=== PATIENT | male | born 1955 | race Caucasian/White ===

== ENCOUNTER 2018-06-01 10:48 | Observation (INO) ==
[2018-06-01 11:28] LABS: Basophils % 0.5 %; Eosinophils # 0.1 K/mcL (0.0-0.6); Eosinophils % 0.8 %; Hematocrit 49.5 % (37.5-50.1); Hemoglobin 17.4 g/dL (12.9-16.9); Immature Granulocytes % 0.3 % (0-4); Mean Corpuscular HGB Conc 35.2 g/dL (31.6-35.5); Mean Corpuscular Hemoglobin 31.4 pg (28.0-33.3); Mean Corpuscular Volume 89.2 fL (83.0-100.0); Mean Platelet Volume 8.7 fL (9.4-12.4); Monocytes # 0.5 K/mcL (0.0-1.3); Monocytes % 6.5 %; Neutrophils # 6.2 K/mcL (1.6-8.9); Platelet Count 246 K/mcL (140-400); Red Blood Count 5.55 M/mcL (4.19-5.50); Red Cell Distribution Width 12.7 % (11.5-14.5); Segmented Neutrophils % 78.9 %
[2018-06-01 11:47] LABS: Prothrombin Time 11.7 Seconds (9.4-12.1)
[2018-06-01 11:50] LABS: Activated Partial Thrombo Time 30.4 Seconds (26.0-36.0)
[2018-06-01 11:53] LABS: BUN/Creatinine Ratio 13 (6-26); Blood Urea Nitrogen 14 mg/dL (8-23); Calcium 9.4 mg/dL (8.6-10.3); Carbon Dioxide 29 mEq/L (23-29); Chloride 107 mEq/L (98-107); Glucose 103 mg/dL (70-105); Osmolality,Calculated 293 (280-300); Potassium 4.2 mEq/L (3.5-5.1); Sodium 141 mEq/L (136-145); eGFR For Non-African Americans > 60 (> 60)
[2018-06-01 11:54] LABS: Troponin I < 0.03 ng/mL (< 0.04)
--- NOTE | 2018-06-01 15:24 | Emergency Department Note ---
Disposition Clinical Impression: Intermittent palpitations Disposition: Admitted As Inpatient Condition: Good Referrals: Rosmery Chapin CNP [Primary Care Provider] - Forms: ED Satisfaction Letter General Adult HPI - General Chief complaint: ED Arrhythmia/Palpitations Stated complaint: Abnormal EKG Time Seen by Provider: 06/01/18 11:14 Source: family Limitations: no limitations - History of Present Illness HPI Narrative: Azael is a 62 YO M without significant PMH who presents to the [facility] ED following an abnormal EKG at his family doctor's office. History comes from the patient and his . Azael states that he is a very healthy 62 year old who runs long distances, and ran over 8 miles earlier this week. He has noticed a sporadic sensation of palpitations and racing heart rate for the last several days, which led him to seek evaluation with [facility]. While there, an EKG was performed with showed ST elevations in V2 and V3 and ST depressions in leads 2, 3 and AVF. These findings led his PCP to send Azael to [facility] ED for further evaluation and treatment. upon arrival, a repeat EKG was performed which revealed persistant ST elevations in V2 and V3, as well as findings consistent with LVH and right heart strain. during this period, Azael insists that he is currently asymptomatic and pain free. He denies F/C/NS, CP/SOB, N/V/D, AMS or syncope. He denies any cardiac history or sign ificant family history of cardiac disease at a young age. He states that his only medical problem was a kidney stone several years ago, which required a physical evaluation prior to the removal procedure. At that time an EKG abnormality was also identified, and Azael was seen by cardiology in an ou tpatient setting for clearance. He states that the associate director of sales was unconcerned with his EKG changes at that time. Onset (ago): day(s) Location: chest Radiation: non-radiation Pain Scale: 0 Consistency: intermittent Improves with: nothing Worsens with: nothing Associated symptoms: Reports: denies other symptoms. Denies: chest pain, cough, diaphoresis, fever/chills, headaches, syncope Treatments Prior to Arrival: none - Related Data Allergies Allergy/AdvReac Type Severity Reaction Status Date / Time No Known Allergies Allergy Verified 06/01/18 11:28 Constitutional: Denies: fever, chills Eyes: Denies: vision change ENT ED: Denies: congestion Cardiovascular: Reports: palpitations. Denies: chest pain, dyspnea on exertion, orthopnea, syncope Respiratory: Denies: cough, dyspnea, wheezes, hemoptysis, sputum production Gastrointestinal: Denies: abdominal pain, nausea, vomiting, diarrhea Genitourinary: Denies: urgency, dysuria, frequency Musculoskeletal: Denies: back pain, neck pain Neurological: Denies: headache, weakness, numbness Psychiatric: Denies: anxiety, depression Past Medical History - Past Medical History Medical history: Reports: no medical history Psychiatric history: Reports: no psych history - Social History Smoking Status: Current every day smoker Alcohol use: Reports: none Drug use: Reports: none Physical Exam - General Limitations: no limitations General appearance: alert - Head Head exam: atraumatic, normocephalic, normal inspection - Eye Eye exam: Present: normal appearance, PERRL, EOMI - ENT ENT exam: normal exam, normal oropharynx, mucous membranes moist - Neck Neck exam: Present: normal inspection, full ROM, trachea midline - Chest Chest inspection: Present: normal inspection, symmetric chest wall rise - Respiratory Respiratory exam: Present: normal lung sounds bilaterally. Absent: respiratory distress, wheezes, stridor, accessory muscle use - Cardiovascular Cardiovascular exam: Present: regular rate, normal rhythm, normal heart sounds. Absent: tachycardia, systolic murmur, rubs, gallop - Abdominal Exam Abdominal exam: Present: soft, Non-Tender, normal bowel sounds. Absent: tenderness, distention, guarding, rebound, rigidity - Extremities Exam Extremities exam: Present: normal inspection, normal capillary refill. Absent: pedal edema - Neurological Exam Neurological exam: Present: alert, oriented X3, CN II-XII intact - Psychiatric Psychiatric exam: Present: normal affect, normal mood - Skin Skin exam: Present: warm, dry, intact Course Course Narrative: Initial troponin level is WNL. Will admit for ACS rule out. Heart Score of 3. Discussed patient with admitting hospitalist service and cardiology. Vital Signs Temperature 98.0 F 06/01/18 10:50 Pulse Rate 60 06/01/18 10:50 Respiratory Rate 15 06/01/18 10:50 Blood Pressure 126/85 06/01/18 10:50 O2 Sat by Pulse Oximetry 95 06/01/18 10:50 Temperature 98.0 F 06/01/18 11:06 Pulse Rate 60 06/01/18 11:06 Respiratory Rate 15 06/01/18 11:06 Blood Pressure 126/85 06/01/18 11:06 O2 Sat by Pulse Oximetry 100 06/01/18 11:20 Oxygen Delivery Oxygen Delivery Room Air Medical Decision Making - Lab Data Result diagrams: 06/01/18 11:18 06/01/18 11:18 Lab Results 06/01/18 06/01/18 06/01/18 Range/Units 11:18 11:18 11:18 WBC 7.9 (4.3-11.1) K/mcL RBC 5.55 H (4.19-5.50) M/mcL Hgb 17.4 H D (12.9-16.9) g/dL Hct 49.5 (37.5-50.1) % MCV 89.2 (83.0-100.0) fL MCH 31.4 (28.0-33.3) pg MCHC 35.2 (31.6-35.5) g/dL RDW 12.7 (11.5-14.5) % Plt Count 246 (140-400) K/mcL MPV 8.7 L (9.4-12.4) fL Immature Gran % 0.3 (0-4) % Seg Neutrophils % 78.9 % Lymphocytes % 13.0 % Monocytes % 6.5 % Eosinophils % 0.8 % Basophils % 0.5 % Neutrophils # 6.2 (1.6-8.9) K/mcL Lymphocytes # 1.0 (0.6-4.6) K/mcL Monocytes # 0.5 (0.0-1.3) K/mcL Eosinophils # 0.1 (0.0-0.6) K/mcL Basophils # 0.0 (0.0-0.2) K/mcL PT 11.7 (9.4-12.1) Seconds INR 1.0 APTT 30.4 (26.0-36.0) Seconds Sodium (136-145) mEq/L Potassium (3.5-5.1) mEq/L Chloride (98-107) mEq/L Carbon Dioxide (23-29) mEq/L BUN (8-23) mg/dL Creatinine (0.70-1.30) mg/dL Est GFR ( Amer) (> 60) Est GFR (Non-Af Amer) (> 60) BUN/Creatinine Ratio (6-26) Glucose (70-105) mg/dL Calculated Osmolality (280-300) Calcium (8.6-10.3) mg/dL Troponin I (< 0.04) ng/mL B-Natriuretic Peptide 85 (Less than 100) pg/mL 06/01/18 Range/Units 11:18 WBC (4.3-11.1) K/mcL RBC (4.19-5.50) M/mcL Hgb (12.9-16.9) g/dL Hct (37.5-50.1) % MCV (83.0-100.0) fL MCH (28.0-33.3) pg MCHC (31.6-35.5) g/dL RDW (11.5-14.5) % Plt Count (140-400) K/mcL MPV (9.4-12.4) fL Immature Gran % (0-4) % Seg Neutrophils % % Lymphocytes % % Monocytes % % Eosinophils % % Basophils % % Neutrophils # (1.6-8.9) K/mcL Lymphocytes # (0.6-4.6) K/mcL Monocytes # (0.0-1.3) K/mcL Eosinophils # (0.0-0.6) K/mcL Basophils # (0.0-0.2) K/mcL PT (9.4-12.1) Seconds INR APTT (26.0-36.0) Seconds Sodium 141 (136-145) mEq/L Potassium 4.2 (3.5-5.1) mEq/L Chloride 107 (98-107) mEq/L Carbon Dioxide 29 (23-29) mEq/L BUN 14 (8-23) mg/dL Creatinine 1.09 (0.70-1.30) mg/dL Est GFR ( Amer) > 60 (> 60) Est GFR (Non-Af Amer) > 60 (> 60) BUN/Creatinine Ratio 13 (6-26) Glucose 103 (70-105) mg/dL Calculated Osmolality 293 (280-300) Calcium 9.4 (8.6-10.3) mg/dL Troponin I < 0.03 (< 0.04) ng/mL B-Natriuretic Peptide (Less than 100) pg/mL - EKG Data EKG #1 EKG shows normal: sinus rhythm Rate: normal [place]/QRS: normal Voltage: c/w LVH, c/w atrial hypertrophy P waves: ANAHI ST segment elevation in: v2, v3 ST segment depression in: II, III, aVF QRS morphology: J-point elevation Interpretation: LVH
[2018-06-01] MEDS ORDERED: Naloxone 0.4 MG/ML INJ IVP PRN (16:08)
[2018-06-01] MEDS ORDERED: traMADol 50 MG TABLET PO PRN (16:08)
[2018-06-01] MEDS ORDERED: Nitroglycerin 0.4 MG TAB.SUBL SL PRN (16:11)
[2018-06-01 16:51] LABS: Chol/HDL Ratio 3.9 (0-4.9)
--- NOTE | 2018-06-01 17:34 | Internal Med History&Physical ---
Date of Encounter: 06/01/18 Time of Encounter: 17:29 Internal Medicine - H&P: HPI Chief complaint: Palpitations Admitted From: Home Plans for Post Hospital Care: Home History of present illness: Mr. Chang is a 62 year old male with no significant past medical history. Patient presented to the emergency room due to palpitation and irregular EKG at his PCP office. Patient reports that most of his adult life he has had intermittent palpitations, which he describes as feeling an irregular heartbeat, each episode lasting less than a minute and then being symptoms free for months. Last night at around 9pm while he was at home he started having palpitations, he denies light headedness, shortness of breath or chest pain associated with it. Because the palpitations did not resolved he decided to go to his PCP. At the PCP office and EKG was done which showed: revealed persistant ST elevations in V2 and V3, as well as findings consistent with LVH for which the patient was sent to the ED for further evaluation. Patient reported that in the past he had an abnormal EKG, but and was seen by a strainer mill operator but that the strainer mill operator recommended against any further intervention. Past Med Surg Social Fam HX - Past Medical History Medical history: no medical history Psychiatric history: no psych history - Past Surgical History Additional surgical history: Kidney Stones, left knee scoped - Social History Smoking Status: Never smoker Alcohol use: none Drug use: none - Family History Father Living Status: Hx Family Cardiac Disorders: Yes Hx Family Respiratory Disorders: Yes Hx Family Cancer: No Mother Living Status: Still Living Hx Family Cardiac Disorders: Yes Internal Medicine - H&P: Meds Allergy/AdvReac Type Severity Reaction Status Date / Time No Known Allergies Allergy Verified 06/01/18 11:28 All Systems PM: A 10-system review of systems was performed and is negative for pertinent findings except as documented above in the HPI. - Constitutional Constitutional: no chills, no fever(s), no weakness - EENT Eyes: no irritation Nose, mouth and throat: no change in voice - Cardiovascular Cardiovascular ROS IM: irregular heart rhythm, palpitations, no chest pain, no claudication, no diaphoresis, no dyspnea on exertion, no edema, no lightheadedness, no orthopnea, no paroxysmal nocturnal dyspnea, no syncope - Respiratory Respiratory: no cough, no dyspnea on exertion, no wheezing, no pain on inspiration, no chest congestion - Gastrointestinal Gastrointestinal: no abdominal pain, no dysphagia, no nausea - Genitourinary Genitourinary ROS male: urinary frequency, no urinary hesitancy, no urinary incontinence, no urinary urgency - Musculoskeletal Musculoskeletal ROS IM: no atrophy, no back pain - Integumentary Integumentary IM: no rash - Neurological Neurological ROS: no lack of coordination, no tremor(s), no weakness - Psychiatric Psychiatric: no anxiety, no difficulty concentrating, no visual hallucinations - Endocrine Endocrine IM: no cold intolerance, no excessive sweating, no fatigue, no polydipsia, no polyphagia, no polyuria - Hematologic/Lymphatic Hematologic/Lymphatic: no easy bleeding - Allergic/Immunologic Allergic/Immunologic: no GI upset with certain foods Additional comments: Rest of the review of system negative. - Constitutional Vitals: Temp Pulse Resp BP Pulse Ox 98.0 F 65 16 137/79 100 06/01/18 16:34 06/01/18 16:34 06/01/18 16:34 06/01/18 16:34 06/01/18 16:34 Exam: Vitals: Reviewed. General: Alert and orientedx4. In no distress Skin: Normal color, no rash, no lesions. HEENT: EOM, pupils equal, round and reactive. Cardiovascular: RRR, Normal S1 & S2, no rubs, murmurs or gallops. No JVD. Lungs: Clear to auscultation bilaterally, no wheezes or crackles. Abdomen: Soft, non-tender, no rigidity. Extremities: No deformity, no edema or tenderness, no joint swelling or clubbing. Neurological: Normal cognition and motor skills. Rest of the physical exam is non contributory Internal Med - H&P Results - Labs CBC & Chem 7: 06/01/18 11:18 06/01/18 11:18 Labs: Short CBC 06/01/18 Range/Units 11:18 WBC 7.9 (4.3-11.1) K/mcL Hgb 17.4 H D (12.9-16.9) g/dL Hct 49.5 (37.5-50.1) % Plt Count 246 (140-400) K/mcL Neutrophils # 6.2 (1.6-8.9) K/mcL BMP 06/01/18 11:18 Sodium 141 Potassium 4.2 Chloride 107 Carbon Dioxide 29 BUN 14 Creatinine 1.09 Glucose 103 Calcium 9.4 Cardiac Enzymes 06/01/18 06/01/18 Range/Units 11:18 16:22 Troponin I < 0.03 < 0.03 (< 0.04) ng/mL - Impressions ITS Impressions Chest X-Ray 06/01/18 11:23 IMPRESSION: No acute cardiopulmonary disease. D/ / Karen Chan MD / Karen Chan MD Interpreting Provider: Karen Chan MD - Diagnostic Studies Chest x-ray Status: image reviewed by me Additional comments: No acute abnormality. - Assessment and plan (1) Intermittent palpitations Current Visit: Yes Status: Acute Assessment and plan: Associated with abnormal EKG changes Plan Continue telemetry monitoring. TSH, reflex T4 Serial trops cardiology consult heparin 5000 units SuBQ Q8HRs lipid panel No bb as patient bradycardic. Nitroglycerin 0.4mg/SubL Q5min x5 PRN for chest pain Mag and Phosp level started on 0.45@75mls/hr due to hemo-concentration limited TTE to eval for valvular and wall motion abnormalities. - Time Spent With Patient Total time spent is greater than 50% in coordination of care (as documented) at patient's floor/unit and/or counseling patient: Greater than 35 minutes (40)
[2018-06-01 18:03] LABS: Magnesium 2.3 mg/dL (1.6-2.6); Phosphorous 3.2 mg/dL (2.7-4.5)
[2018-06-01] MEDS: *HR* Heparin 5,000 UNIT/ML VIAL SQ SCH (22:07)
--- NOTE | 2018-06-02 03:45 | Electrocardiograph Report ---
[facility] Test Date: 2018-06-01 Pat Name: Azael Chang Department: EXAM7 Room: 3B Gender: M Salary Manager: : 1955 Requested By: Albert Wilson Order Number: [id number] Reading MD: Elmer Dillon Measurements Intervals [place] Rate: 62 P: 76 MO: 181 QRS: 81 QRSD: 97 T: -54 QT: 434 QTc: 441 Interpretive Statements Sinus rhythm LVH Electronically Signed On 06-02-2018 3:44:14 EST by Elmer Dillon
[2018-06-02 04:55] LABS: BUN/Creatinine Ratio 17 (6-26); Blood Urea Nitrogen 15 mg/dL (8-23); Calcium 8.8 mg/dL (8.6-10.3); Carbon Dioxide 25 mEq/L (23-29); Chloride 108 mEq/L (98-107); Glucose 101 mg/dL (70-105); Magnesium 2.1 mg/dL (1.6-2.6); Osmolality,Calculated 287 (280-300); Phosphorous 3.9 mg/dL (2.7-4.5); Potassium 3.8 mEq/L (3.5-5.1); Sodium 138 mEq/L (136-145); eGFR For Non-African Americans > 60 (> 60)
[2018-06-02] MEDS: *HR* Heparin 5,000 UNIT/ML VIAL SQ SCH (06:07)
[2018-06-02 10:45] VITALS: BP 129/75
--- NOTE | 2018-06-02 13:22 | Cardiology Consult Note ---
Addendum entered and electronically signed by Royce العراقي MD 06/02/18 15:37: I examined this patient and my medical decision-making was reviewed with the CATERING SERVER. I agree with the documented findings, disposition and treatment plan as described except to the extent set forth below. A/P: LVH by EKG but normal LV thickness by echo Systolic anterior motion of mitral valve leaflets No cardiac sxs outside of palpitations with 4+++ METS Holter on discharge, no arrhythmia noted on tele. Fu as outpatient Thank you for the consult, Royce العراقي MD [facility] Original Note: Date of Encounter: 06/02/18 Time of Encounter: 10:00 Assessment and Plan (1) Abnormal ECG Current Visit: Yes Status: Acute Per cardiology: -ECG reviewed with SR, HR 62. LVH changes noted. -Patient reports ECG has been abnormal in 2014 and saw a ultrasound technologist at [facility]. -Denies chest pain, shortness of breath, fatigue. Very active at home. -Limited TTE with LVEF 65%. Systolic anterior motion (JOSIAH) of the MV leaflets noted. Limited study. Valves not assessed. No segmental wall motion abnormalities noted. -Do not anticipate, further cardiac testing at this time for abnormal ECG. (2) Intermittent palpitations Current Visit: Yes Status: Chronic Per cardiology: -Reports chronic intermittent palpitations, however reports "racing heart" on Thursday, into Thursday morning. -States resting HR 40-50s, however on Thursday HR was 90. -Will not add BB at this time due to bradycardia. -Will place 48 hour holter monitor prior to discharge. -Will follow up outpatient. Discussion w patient/family: The assessment and plan as outlined above was discussed with the patient and/or family members who expressed understanding and agreement. All questions were answered. Thank you for involving us in the care of your patient. Please call with any questions. Discussed and reviewed with . History of Present Illness Consult date: 06/01/18 Requesting physician: Gil Mijares Consult reason: abnormal ECG Chief complaint: abnormal ECG History of present illness: Mr. Chang is a 62 year old male with a relevant past medical history of seasonal allergies, palpitations who went to his PCP yesterday with complaints of racing HR. 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 Patient states his resting HR is about 40-50bpm. Patient states starting Thursday had "racing heart." Patient states his HR was in the 90s. Patient states HR was elevated until Thursday morning when he saw his PCP. Patient states other than feeling like his heart was racing, was asymptomatic. Patient denies chest pain. Denies shortness of breath. Denies fatigue. Reports he ran 8 miles on Thursday and tolerated without symptoms. Past Med Surg Social Fam HX - Past Medical History Attestation: Yes The following information was validated with the patient. Source: patient, old records reviewed Medical history: other (palpitations, seasonal allergies) Psychiatric history: no psych history - Past Surgical History Additional surgical history: Kidney Stones, left knee scoped - Social History Smoking Status: Never smoker Alcohol use: none Drug use: none - Family History Father Living Status: Hx Family Cardiac Disorders: Yes Hx Family Respiratory Disorders: Yes Hx Family Cancer: No Mother Living Status: Still Living Hx Family Cardiac Disorders: Yes Medications and Allergies Minocycline [Minocin] 50 mg PO DAILY PRN 06/01/18 [History] Aspirin Enteric Coated [Aspirin EC] 81 mg PO DAILY #30 tablet. 06/02/18 [Rx] Allergy/AdvReac Type Severity Reaction Status Date / Time levofloxacin [From Levaquin] Allergy See Verified 06/01/18 18:43 Comments All Systems Review: The remainder of the systems were reviewed and are negative - Cardiovascular Cardiovascular: as per HPI, palpitations, rapid heart rate Physical Examination Vital Signs, Last 4 Hours Temp Pulse Resp BP Pulse Ox 06/02/18 10:44 129/75 06/02/18 10:40 146/76 06/02/18 10:23 98.6 F 48 16 121/67 100 General: Conversant, No Apparent Distress HEENT: Atraumatic, Normocephaly, Mucus Membranes Moist Neck: No JVD, Normal carotid pulses Cardiac: Reg Rate and Rhythm, Normal S1 and S2, No Murmur Lungs: Normal Breath Sounds, No Wheeze, Rales, Rhonchi Neuro: Alert and responsive, No focal deficits noted Abdomen: Soft, Non-Tender Skin: No rashes noted on visualized skin Musculoskeletal: No Chest Wall Tenderness Extremities: No Clubbing, No Cyanosis, No Edema, Normal Pulses Results 06/01/18 11:18 06/02/18 04:21 Lab Results Impressions Echocardiogram Limited Views 06/01/18 17:27 Impressions: LVEF 65%. Normal LV chamber size, wall thickness and function. Normal right ventricular structure and function. Systolic anterior motion (JOSIAH) of the MV leaflets noted. Limited study. Valves not assessed. Left Ventricular Wall Motion: Rest Echo Findings All wall segments showed normal motion. Findings: Study Quality * Technically adequate exam. ECG Findings * Normal sinus rhythm. Left Ventricle * LVEF 65%. * Normal LV chamber size, wall thickness and function. Right Ventricle * Normal right ventricular structure and function. Mitral Valve * Systolic anterior motion (JOSIAH) of the MV leaflets noted. Aorta * Normally sized aortic root. Pericardium * The pericardium appears normal. Active Medications Heparin Sodium (Porcine) (Heparin) 5,000 unit SQ Q8HCO [facility] Stop: 12/01/18 22:01 Last Admin: 06/02/18 06:07 Dose: 5,000 unit Sodium Chloride (0.45% Sodium Chloride 1000 Ml 1000 Ml) 1,000 mls @ 75 mls/hr I VC .[id number] [facility] Stop: 12/01/18 17:31 Last Admin: 06/02/18 07:23 Dose: 75 mls/hr Naloxone HCl (Narcan) 0.4 mg IVP Q2MIN PRN PRN Reason: SEE COMMENTS Stop: 12/01/18 16:09 Nitroglycerin (Nitroglycerin) 0.4 mg SL Q5MIN PRN PRN Reason: Chest Pain Stop: 12/01/18 16:12 Tramadol HCl (Ultram) 50 mg PO Q6HR PRN PRN Reason: Moderate Pain Stop: 12/01/18 16:09 Laboratory Tests 06/01/18 06/01/18 06/01/18 11:18 11:18 16:22 Hgb 17.4 H D Potassium Creatinine Troponin I < 0.03 < 0.03 TSH 06/01/18 06/02/18 06/02/18 21:48 04:21 04:21 Hgb Potassium 3.8 Creatinine 0.88 Troponin I < 0.03 < 0.03 TSH 06/02/18 04:21 Hgb Potassium Creatinine Troponin I TSH 0.992 - Imaging and Cardiology Chest Xray: report reviewed Echo: report reviewed - EKG Interpretation EKG results cardiology: personally reviewed (ECG with SR, HR 62. LVH), other (Telemetry reviewed with average HR previous 12 hours noted to be 50, SR) Consult Discharge Plan - Plan Referrals: Rosmery Chapin, REZA [Primary Care Provider] - (Your appointment has been requested. Our offices will call you with an appointment time and date. ) Prescriptions: Aspirin Enteric Coated [Aspirin EC] 81 mg PO DAILY #30 tablet.
--- NOTE | 2018-06-02 13:26 | Discharge Summary ---
- NOTES TO OUTPATIENT PROVIDER Notes to Outpatient Provider: Follow up with PCP in one week. Follow with the wanigan clerk in one week. Orders not resulted at time of discharge: Pending orders 06/02/18 13:11 ECG 48 holter monitor setup [ECG] Routine Date of Encounter: 06/02/18 Time of Encounter: 13:23 - Discharge Diagnosis (1) Intermittent palpitations Priority: Primary Status: Chronic (2) Abnormal ECG Priority: Secondary Status: Acute Hospital course: Mr. Chang is a 62 year old male with no significant past medical history, who presented to the emergency room due to palpitation and irregular EKG at his PCP office. Patient reports that most of his adult life he has had intermittent palpitations, which he describes as feeling an irregular heartbeat, each episode lasting less than a minute and then being symptoms free for months. This time he had palpations for 2 days , so he decided to go to his PCP. At the PCP office and EKG was done which revealed non specific ST changes in V2 and V3, as well as findings consistent with LVH for which the patient was sent to the ED for further evaluation. Pt was admitted in the hospital and placed him on cardiac rehabilitation specialist. Checked his serial troponin x 3 which were negative. He denied any CP. His 2 D Echo came back as preserved LVEF with systolic anterior motion of the mitral valve leaflets noticed. At this point pt was evaluated by Cardiology and recommend an out pt holter monitor. So will d/c him home in stable condition with holter monitor. - Time Spent with Patient Total time spent providing and/or coordinating discharge services: - Discharge Medications Prescriptions: Aspirin Enteric Coated [Aspirin EC] 81 mg PO DAILY #30 tablet. Home Medications: Minocycline [Minocin] 50 mg PO DAILY PRN 06/01/18 [History] Aspirin Enteric Coated [Aspirin EC] 81 mg PO DAILY #30 tablet. 06/02/18 [Rx] Allergies/Adverse Reactions: Allergy/AdvReac Type Severity Reaction Status Date / Time levofloxacin [From Levaquin] Allergy See Verified 06/01/18 18:43 Comments Date of admission: 06/01/18 15:30 Primary care physician: Rosmery Chapin CNP Consults: 06/01/18 16:10 Consult to Cardiology [CONS] Routine Comment: Consulting Provider: Cardiology Leonarda Reason for Consult: Abnormal EKG Call Completed: No - Constitutional Vitals: Temp Pulse Resp BP Pulse Ox 98.6 F 48 16 129/75 100 06/02/18 10:23 06/02/18 10:23 06/02/18 10:23 06/02/18 10:44 06/02/18 10:23 Exam: Gen: Alert, awake, Oriented to time,place and person Chest: Diminished breath sounds B/L, No wheezing, No crackles, No rales Heart: S1S2+ RRR No murmurs Abd: Soft, NT, BS +, No organomegaly Ext: No edema, pulses are palpable, No calf tenderness Neuro : Benign findings Skin: No rash. - Patient Status Disposition: Home, Self-Care Condition: Good Overall status at discharge: patient is back to baseline - Discharge Instructions Follow Up With: Rosmery Chapin CNP [Primary Care Provider] - (Your appointment has been requested. Our offices will call you with an appointment time and date. ) Royce العراقي MD [Partnered Physician] - - Diet and Activity Activity: increase activity as tolerated Diet: low salt diet
--- NOTE | 2018-06-02 14:17 | Electrocardiograph Report ---
[address] [place], [place] [address] Test Date: 2018-06-02 Pat Name: Azael Chang Department: 113 Room: 3B Gender: M Case Liner: : 1955 Requested By: Jeff Sotelo Order Number: [id number] Reading MD: Laura Meléndez Measurements Intervals [place] Rate: 40 P: 64 [place]: 180 QRS: 55 QRSD: 94 T: -48 QT: 478 QTc: 411 Interpretive Statements SINUS BRADYCARDIA POSSIBLE LEFT ATRIAL ENLARGEMENT MODERATE T-WAVE ABNORMALITY, CONSIDER ANTEROLATERAL ISCHEMIA MODERATE T-WAVE ABNORMALITY, CONSIDER INFERIOR ISCHEMIA Electronically Signed On 06-02-2018 14:15:53 EST by Laura Meléndez
== END 2018-06-02 14:35 | disposition home or self-care (01) ==
LOC: 3BNU 10:48 → EMEROOARM 10:48 → SUATTDRO 15:30 → 3BNU 16:20
PROVIDERS: ADMIT Internal Medicine Cardiovascular Disease; ATTEND Family Medicine